=== PATIENT | female | born 1990 | race Caucasian/White ===

== ENCOUNTER → 2017-08-29 | Outpatient (CLI) | payer OTHER ==
--- NOTE | 2017-08-29 12:56 | DIAGNOSTIC IMAGING REPORT ---
GUIDANCE NEEDLE PLACEMENT CLINICAL HISTORY: 27 years-old Female presenting with RT AND LT THYROID NODULES. TECHNIQUE: Real-time grayscale and limited color Doppler ultrasound imaging of the thyroid was performed for ultrasound-guided fine-needle aspiration. COMPARISON: 07/23/2017. PROCEDURE: The risks, benefits, and alternatives of the procedure were discussed with the patient. Written informed consent was obtained. A timeout was performed to confirm patient identity. The patient was placed supine in ultrasound, and the 1.3 cm nodule in the right lobe of the thyroid was localized by ultrasound and selected for fine needle aspiration. The previously reported left thyroid nodule does not meet [employer] criteria for fine-needle aspiration. Nodule descriptions follow: Right lobe: 1. Interpolar solid hypoechoic circumscribed wider than tall nodule, measuring 1.3 x 0.8 x 1.0 cm. No calcification. (Intermediate suspicion) Left lobe: 1. Interpolar solid hypoechoic circumscribed wider than tall nodule, measuring 0.9 x 0.6 x 0.7 cm. No calcification. (Intermediate suspicion) The right neck was prepped and draped in the usual sterile fashion. The nodule was aspirated under ultrasound guidance with 2 passes utilizing 25-gauge needles. Specimens were reviewed by the pathologist at the time of biopsy and were deemed adequate for diagnosis. The patient tolerated the procedure well. IMPRESSION: 1. Successful fine-needle aspiration of the right thyroid nodule as above. 2. The left lobe nodule was not targeted for fine-needle aspiration as this does not meet [employer] criteria. Continued ultrasound follow-up could be considered as clinically indicated. Electronically signed by: Nikita Rosales M.D. 08/29/2017 12:55 PM Dictated Date/Time: 08/29/2017 12:51 PM
== END | disposition home or self-care (01) ==
LOC: C.ULTR 11:02
PROVIDERS: ATTEND Internal Medicine Endocrinology, Diabetes & Metabolism
DX: E04.1 Nontoxic single thyroid nodule (principal)